=== PATIENT | female | born 1970 | race Caucasian/White ===

== ENCOUNTER 2019-04-16 22:06 | Emergency (ER) | payer OTHER ==
[~2019-04-16] VITALS: Ht 170.2 cm; Wt 81.7 kg
[~2019-04-16 22:06] MED LIST: AMOXICILLIN 50500 M1; BACTRIM DS TAB1 EACH PO; BACTROBAN15 GM TP; CIPROFLOXACIN500 M1 PO; FLOMAX0.4 MG PO; GLUCOSAMINE-CH1 EACH PO; KEFLEX500 MG PO; MELATONIN 5 MG1 EAC1 PO; MULTIVITAMINS PO; NORCO 5-325 TA1 EACH PO; NORFLEX100 MG PO; PERCOCET 5-3251 EACH PO; PROMETHAZINE HC25 MG RECTAL; TAMSULOSIN HCL0.4 MG PO; TYLENOL P.M. E1 EAC3 PO; VITAMIN D400 UNIT PO; ZOFRAN ODT4 MG SUBLING
[2019-04-17 00:25] VITALS: BP 121/80
== END 2019-04-17 00:26 | disposition home or self-care (01) ==
LOC: M.ERS 22:06
DX: S50.01XA Contusion of right elbow, initial encounter (principal); S00.03XA Contusion of scalp, initial encounter; M79.7 Fibromyalgia; Z88.5 Allergy status to narcotic agent; Z90.710 Acquired absence of both cervix and uterus; Z98.890 Other specified postprocedural states; V00.131A Fall from skateboard, initial encounter; Y92.89 Other specified places as the place of occurrence of the external cause; Y93.51 Activity, roller skating (inline) and skateboarding; Y99.8 Other external cause status

== ENCOUNTER → 2020-09-24 | Outpatient (CLI) | payer OTHER ==
[~2020-09-24] MED LIST changes: +MELATONIN10 M3 PO; +ROXICODONE5 M2 PO; +UNISOM25 MG PO; +[UNRECOGNIZED DRUG - OTHER] PO
== END ==
LOC: M.LAB 07:06
PROVIDERS: ATTEND Surgery
DX: Z01.812 Encounter for preprocedural laboratory examination (principal); Z20.828 Contact with and (suspected) exposure to other viral communicable diseases

== ENCOUNTER → 2020-09-27 | Day surgery (SDC) | payer OTHER ==
--- NOTE | 2020-09-27 11:22 | OP ---
[address] [address] OPERATIVE REPORT Name: DOMINIK LUNDBERG Room: [facility]#: [id number] Admission: 09/27/20 Attend Phys: Kathia Bingham DO Discharge: Date of : 72 Report #: [id number] THIS REPORT FOR: //name// cc: Jada Schroeder Kathleen M. DO ~ CC: Kathia Schroeder DATE OF SERVICE: 09/27/2020 PREOPERATIVE DIAGNOSES: Left axillary mass and scalp mass. POSTOPERATIVE DIAGNOSES: Left axillary mass and scalp mass. FINDINGS: Left axilla mass, final measurements were 6 x 4 x 1 cm, incision length was 6 cm, depth of dissection was fatty tissues, scalp mass or cyst measured 0.9 x 1 x 0.5 cm. SURGEON: Kathia Bingham DO COSURGEON: Arik Flaherty DO, PGY-1. DIRECTOR OF CORPORATE SALES: Edwin Clemons MS4. PROCEDURE PERFORMED: Excision of left axilla mass and excision of scalp mass. ANESTHESIA TYPE: LMA and local. ESTIMATED BLOOD LOSS: 10 mL. DRAINS: None. SPECIMENS: Left axilla mass and a scalp cyst or mass. COMPLICATIONS: None. CONDITION: Stable. DISPOSITION: PACU to home. HISTORY OF PRESENT ILLNESS: The patient is a very pleasant 50-year-old female who presented to my office with a complaint of an enlarging, painful mass in the area of the left axilla. She had a mass excised previously in this area and it appeared that the mass was recurring along the lateral aspect of the incision. In addition, she had a painful growing 1 x 1 cm mass on her scalp, which appeared to be a scalp cyst. She was consented [place] [address] OPERATIVE REPORT Name: DUSTIN LUNDBERGJU Arroyo Room: [facility]#: [id number] Admission: 09/27/20 Attend Phys: Kathia Bingham DO Discharge: Date of : 72 Report #: [id number]. Risks discussed included bleeding, infection, pain, scar formation, recurrence, need for further surgery and risks of general anesthesia. The patient understood these risks and elected to proceed. DESCRIPTION OF PROCEDURE: The patient was brought to the operating room. She laid supine on the operating room table. SCDs were placed on bilateral lower extremities. Ancef was given in the perioperative period. General LMA anesthesia was induced by Anesthesia without difficulty. Left axilla and scalp were both prepped and draped in standard sterile fashion. Timeout was performed to verify patient and procedure. We began with the left axilla mass. An incision was marked out to include a portion of the previous incision and the large mass in the axilla. A 20 mL of 0.5% Marcaine were injected in the area. An elliptical incision was then made around the mass using a 10 blade. Cautery was used for hemostasis. Cautery was then used to dissect down through the tissues to completely excise the mass. Depth of dissection was fatty tissues. Mass measured 6 x 4 x 1 cm. It was then handed off for permanent pathology. Hemostasis was assured. This wound was then closed in a layered fashion using deep and superficial stitches of 3-0 Vicryl in inverted interrupted fashion. Skin wound was closed with running 4-0 Monocryl. We then turned our attention to the scalp mass. A 10 mL of 0.5% Marcaine were injected in the area. An incision was made over the scalp mass. Cyst was then easily identified. It was dissected free using a combination of Metzenbaums and knife dissection until the entirety of the mass was dissected free. It was then handed off for permanent pathology and measured 0.9 x 1 x 0.5 cm. Hemostasis was assured. Wound was then closed with 2 interrupted stitches of a 3-0 nylon. Both wounds were then cleansed and covered. The axilla wound was covered with Dermabond. The scalp wound was covered with antibiotic ointment. The patient was then allowed to awake from anesthesia, was extubated and transported to the recovery room with no further difficulties. Counts were correct x 2 at the conclusion of the case. <ELECTRONICALLY SIGNED> By: Kathia Bingham DO 09/27/20 1122 1106 1117Chbandar Bingham DO /jessica
--- NOTE | 2020-10-02 16:06 | PATH ---
[address] [address] PATHOLOGY RPT PROCEDURE Name: DOMINIK HUFF Room: [facility].#: [id number] Admission: 09/27/20 Date of : 72 Discharge: Report #: [id number] Path Case #: [id number] [facility] Accession Number: [id number] . 01 Material submitted: . PART A: axilla - LEFT AXILLA MASS. Modifiers: left PART B: scalp - SCALP CYST . 02 Diagnosis: A. Left axilla mass: - Benign skin with attached abundant fat including breast tissue compatible with accessory breast, negative for atypia. . B. Scalp cyst: - Pilar (trichilemmal) cyst with focal calcification. . (EVE:la; 10/01/2020) [facility] 10/01/2020 1612 Local . 02 Electronically signed: . Shamir Moura MD, Pathologist NPI- [id number] . 01 Gross description: . A. Received in formalin labeled "Dominik Huff, left axilla mass" is a portion of yellow-peres lobulated fibroadipose tissue measuring 5.0 x 3.5 x 1.8 cm. There is an attached irregular portion of peres-white skin on one aspect measuring 5.3 x 2.3 x 0.4 cm. The external surface is inked black. The specimen is sectioned to reveal yellow-peres homogeneous cut surfaces without hemorrhage or necrosis. Egg Sorter sections are submitted in cassettes A1-A3. . B. Received in formalin labeled "Dominik Huff, scalp cyst" is a peres-white soft tissue nodule measuring 1.1 x 0.8 x 0.7 cm. The specimen is trisected to reveal a cystic structure containing scant peres-white friable material. The specimen is submitted entirely in cassette B1. ([facility]; 09/29/2020) [facility] 10/01/2020 1609 Local . 02 Pathologist provided ICD-10: L72.11 . 02 CPT . 128793, [id number] Specimen Comment: A courtesy copy of this report has been sent to [phone], [phone] Specimen Comment: 1973 Specimen Comment: Report sent to / [place] [address] PATHOLOGY RPT PROCEDURE Name: DOMINIK HUFF S Room: [facility]#: [id number] Admission: 09/27/20 Date of : 72 Discharge: Report #: [id number] Path Case #: [id number] Performed at: 01 [facility] [place] [address], [place], [place] [id number] MD Kedar Ramirez MD Phone: [phone] Performed at: 02 [facility] [address], [place], [place] [id number] MD Shamir Moura MD Phone: [phone]
== END | disposition home or self-care (01) ==
LOC: M.SUR 05:56
PROVIDERS: ATTEND Surgery
DX: L72.11 Pilar cyst (principal); D17.9 Benign lipomatous neoplasm, unspecified; Z98.890 Other specified postprocedural states; Z79.899 Other long term (current) drug therapy; Z20.828 Contact with and (suspected) exposure to other viral communicable diseases; Z87.442 Personal history of urinary calculi